=== PATIENT | female | born 1980 | race Caucasian/White ===

== ENCOUNTER 2018-09-08 16:41 | Inpatient (IN) | payer OTHER ==
[2018-09-08 17:29] VITALS: BMI 24.7
[2018-09-08] MEDS ORDERED: Misoprostol 200 MCG TAB PR PRN (17:55)
[2018-09-08] MEDS ORDERED: Butorphanol Tartrate 1 MG/ML VIAL SLOW IVP PRN (17:55)
[2018-09-08] MEDS ORDERED: Carboprost 250 MCG/ML AMP IM PRN (17:55)
[2018-09-08] MEDS ORDERED: NS / Oxytocin 40 units/1000ml 1,000 ML IV PRN (17:55)
[2018-09-08] MEDS ORDERED: Promethazine HCl 25 MG/ML VIAL IM PRN (17:55)
[2018-09-08] MEDS ORDERED: Acetaminophen 500 MG TAB PO PRN (17:55)
[2018-09-08] MEDS ORDERED: Lidocaine 1% (PF) 30 ML VIAL SC PRN (17:55)
[2018-09-08] MEDS ORDERED: HYDROcodone/Acetaminophen 5/325 mg Tablet PO PRN ×2 (17:55→21:41)
[2018-09-08] MEDS ORDERED: Meperidine HCl/PF 25 MG/ML VIAL IM/IV PRN (17:55)
[2018-09-08] MEDS ORDERED: Methylergonovine 0.2 MG/ML VIAL IM PRN (17:55)
[2018-09-08] MEDS ORDERED: Ondansetron PF 4 MG/2 ML Vial IVP PRN (17:55)
[2018-09-08] MEDS ORDERED: Ibuprofen 800 MG TAB PO PRN (17:55)
[2018-09-08 18:17] LABS: Hemoglobin 11.3 g/dL (12.0-16.0); Mean Corpuscular HGB CONC 31.7 g/dL (32.0-36.0); Mean Corpuscular Hemoglobin 24.9 pg (27.0-31.0); Mean Corpuscular Volume 78.6 fL (78.0-98.0); Mean Platelet Volume 8.1 fL (7.4-10.4); Platelet Count 208 thou/uL (130-400); RBC Distribution Width 14.8 % (11.5-14.5); Red Blood Cell (RBC) Count 4.55 mill/uL (4.20-5.40); White Blood Cell (WBC) Count 7.4 thou/uL (4.8-10.8)
[2018-09-08 18:49] LABS: HBSAg Index 0.21 S/CO (0-0.99); Hep B Surf Ag Non-Reactive S/CO (NonReactive); Syphilis Antibody Nonreactive (Nonreactive); Syphilis Antibody Index 0.06 S/CO (<1.00 Non-Reactive)
[2018-09-08] MEDS ORDERED: Bisacodyl 10 MG SUPP PR PRN (21:41)
[2018-09-08] MEDS ORDERED: Benzocaine/Menthol 20-0.5% 60 ML CAN TOP PRN (21:41)
[2018-09-08] MEDS ORDERED: Preparation H Ointment 28 GM TUBE PR PRN (21:41)
[2018-09-08] MEDS ORDERED: Lanolin Ointment 7 GM TUBE TOP PRN (21:41)
[2018-09-08] MEDS ORDERED: NS / Oxytocin 40 units/1000ml 1,000 ML IV SCH (21:41)
[2018-09-08] MEDS ORDERED: Milk Of Magnesia 30 ML UDCUP PO PRN (21:41)
[2018-09-08] MEDS ORDERED: Docusate Calcium (SURFAK) 240 MG CAP PO SCH (22:00)
--- NOTE | 2018-09-08 22:17 | OP ---
DATE OF DELIVERY: 09/08/2018 PREOPERATIVE DIAGNOSIS: Term intrauterine with spontaneous rupture of membranes. POSTOPERATIVE DIAGNOSIS: Term intrauterine with spontaneous rupture of membranes. PROCEDURE PERFORMED: Normal spontaneous vaginal delivery. SURGEON: Romeo Noguera M.D. ANESTHESIA: None. ESTIMATED BLOOD LOSS: 200 mL. BRIEF DELIVERY SUMMARY: This is a 38-year-old G9 P now 7-0-2-7 at 41-3/7 weeks who presented in acti ve labor with spontaneous rupture of membranes this morning. She did have a forebag on presentation to L&D which I ruptured with clear fluid. She progressed quickly after that to complete and pushing. She delivered a live female infant, head OA. Mouth and nares was bulb suctioned at the perineum. There was a nuchal cord x1 which was unable to be reduced prior to delivery of the shoulders, but the shoulders and body easily followed and the baby was then disentangled from the cord. Apgars were 9 at 1 minute and 9 at 5 minutes. The umbilical cord was collected and sent for analysis. Ruddy prasad delivered spontaneously and intact with a 3-vessel umbilical cord. Uterine fundus was firm foll owing evacuation of the placenta. Mom and baby were left with the nurse in excellent condition, daryl stfeeding.
[2018-09-08] MEDS: Ibuprofen 800 MG TAB PO SCH (22:50)
[2018-09-09] MEDS: Ibuprofen 800 MG TAB PO SCH (05:53)
[2018-09-09] MEDS ORDERED: Ferrous Sulfate 325 MG TAB PO SCH (08:00)
[2018-09-09] MEDS ORDERED: Measles/Mumps/Rubella 10 MCG/0.5 ML VIAL SC ONE (09:00)
[2018-09-09] MEDS ORDERED: Docusate Calcium (SURFAK) 240 MG CAP PO SCH (09:00)
[2018-09-09] MEDS ORDERED: Adacel (T-DAP) 0.5 ML VIAL IM ONE (09:00)
[2018-09-09 11:35] VITALS: BP 123/75; TEMP 98.1
--- NOTE | 2018-09-10 11:45 | PDOC.PP ---
Post Progress Note Post Day #: 1 Subjective: Late entry: Encounter was 09/09/18 at 1030am PO intake tolerated: yes Flatus: yes Ambulation: yes Weight Weight 140 lb - Physical Examination General: NAD Cardiovascular: no m/r/g, RRR Respiratory: clear to auscultation bilaterally, non-labored breathing Abdominal: + bowel sounds, lochia, no distention, appropriately TTP Result Diagrams: 09/08/18 18:06 Additional Labs: Post Labs Blood Type A POSITIVE 09/08/18 18:06 Hep Bs Antigen Non-Reactive S/CO (NonReactive) 09/08/18 18:06 (1) Vaginal delivery Code(s): O80 - ENCOUNTER FOR FULL-TERM UNCOMPLICATED DELIVERY Status: Acute - Assessment/Plan Routine PP care Desires early D/C Will F/U tomorrow D/C home with baby
== END 2018-09-09 13:30 | disposition home or self-care (01) | DRG 807 ==
LOC: L&D/OP 16:41 → L&D-LIB 18:21 → 3SW 22:39
PROVIDERS: ADMIT Family Medicine; ATTEND Family Medicine
PROC: 10E0XZZ Delivery of Products of Conception, External Approach (ICD-10-PCS; principal; 2018-09-08)
PROC: 10907ZC Drainage of Amniotic Fluid, Therapeutic from Products of Conception, Via Natural or Artificial Opening (ICD-10-PCS; 2018-09-08)
DX: O48.0 Post-term pregnancy (principal); Z37.0 Single live birth; Z3A.41 41 weeks gestation of pregnancy; O69.81X0 Labor and delivery complicated by cord around neck, without compression, not applicable or unspecified
CPT/HCPCS: 36415; 85027; 86780; 86850; 86900; 86901; 87340; 99285